=== PATIENT | male | born 1945 | race Caucasian/White ===

== ENCOUNTER 2017-11-03 13:21 | Emergency (ER) | payer OTHER ==
[~2017-11-03] VITALS: Ht 180.3 cm; Wt 99.8 kg
[2017-11-03 15:07] LABS: ABSOLUTE NEUTROPHILS 3.5 thou/uL (1.4-8.2); EOSINOPHILS 2.4 % (0.0-3.0); HEMATOCRIT 47.1 % (42.0-52.0); HEMOGLOBIN 16.3 gm/dL (14.0-18.0); LYMPHOCYTES 29.3 % (24.0-44.0); MCH 30.8 pg (26.0-34.0); MCHC 34.7 g/dL (28.0-37.0); MCV 88.9 fL (80.0-100.0); MONOCYTES 9.4 % (1.0-8.0); PLATELET COUNT 173 thou/uL (150-400); POLYS 57.9 % (36.0-66.0); RBC 5.29 mil/uL (4.50-6.00); RDW 13.4 % (10.5-14.5)
[2017-11-03 15:18] LABS: CALCIUM 9.4 mg/dL (8.5-10.1); CREATININE 1.2 mg/dL (0.7-1.3); POTASSIUM 4.3 mmol/L (3.5-5.1)
[2017-11-03] MEDS ORDERED: KEFLEX500 M1 PO (16:41)
[2017-11-03] MEDS ORDERED: BACTRIM DS TAB1 EACH PO (16:41)
[2017-11-03 17:02] VITALS: BP 138/74
== END 2017-11-03 17:03 | disposition home or self-care (01) ==
LOC: ER 13:21
PROVIDERS: Emergency Medicine
DX: T81.4XXA Infection following a procedure, initial encounter (principal); Z85.828 Personal history of other malignant neoplasm of skin; Z48.01 Encounter for change or removal of surgical wound dressing